=== PATIENT | male | born 1950 | race Caucasian/White ===

== ENCOUNTER 2022-10-17 09:46 | Day surgery (SDC) | payer MEDICARE, OTHER ==
[~2022-10-17] VITALS: Ht 193 cm; Wt 118.0 kg
[~2022-10-17 09:46] MED LIST: FLOMAX0.4 MG PO; LEVOFLOXACIN500 MG PO; LIPITOR20 MG PO; METOPROLOL SUCC50 MG PO; NORVASC10 MG PO; PERCOCET 7.5-31 EACH PO; PROSCAR5 MG PO; TRIAMTERENE-HC1 EAC1 PO
[2022-10-17] MEDS ORDERED: VITAMIN B COMP1 EACH PO (10:11)
[2022-10-17] MEDS ORDERED: VITAMIN C100 MG PO (10:11)
[2022-10-17 10:33] VITALS: BP 131/78
--- NOTE | 2022-10-17 12:47 | NUR ---
10/17/22 [facility] Alisa Pinzon 1241-PATIENT ARRIVED TO PACU ON 2L NC RR EVEN. PATIENT AWAKE REMAINS VERY DROWSY DENIES PAIN OR NAUSEA. ABDOMEN ROUND AND SOFT ENCOURAGED TO PASS GAS. PATIENT DOZES BACK TO SLEEP
[2022-10-17 13:48] VITALS: BP 127/71
--- NOTE | 2022-10-20 15:24 | OR ---
[facility] [address] [place], [place] [address] Signed DATE OF OPERATION: 10/17/2022 SURGEON: Ted Haines MD PREOPERATIVE DIAGNOSES: 1. Left colon mass consistent with malignancy; symptomatic. 2. History of complex cecal polyp. POSTOPERATIVE DIAGNOSES: 1. 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 2. Linear polyp of cecum, uncertain underlying histology. 3. Polyps x3 (60 cm and mid and low rectum). PROCEDURES: 1. Total colonoscopy to cecum with biopsy of left colon mass. 2. Hot snare polypectomy x3 (60 cm, rectum and additional rectal lesion). 3. Hot snare polypectomy with morcellation excision cecal polyp. 4. Endoscopic tattoo application left colon lesion and cecal lesion. ANESTHESIA: Intravenous sedation, fentanyl 200 mcg and Versed 11 mg. INDICATION: This 72-year-old white man is known to me from the past having undergone colonoscopy in 2012 showing an adenomatous polyp of the cecum. Followup colonoscopy confirmed complete resection. He was recommended to have additional followup, however, has been indisposed over the past 10 years and has not followed through with colonoscopy. [place], [place].. The patient has had episodes of left-sided abdominal pain including an episode of nausea and vomiting. His physician, Dr. Martino thought there may be findings of an abdominal wall hernia. I evaluated him on September 25 where he was found to have no clinical evidence of hernia, but did have tenderness and fullness of the left abdomen. A CT scan was performed soon thereafter on September 26 confirming an 11 cm mass in the area of the sigmoid and left colon. He is admitted to undergo colonoscopy at this time. He understands the risk of bleeding, infection, and perforation and wished to proceed. FINDINGS: The prep was good. Complete colonoscopy was undertaken of the cecum. A circumferential tumor was noted in the left colon between 60 and 70 cm from the anal verge. It was clearly malignant. Three additional polyps noted including a linear somewhat firm polyp Electronically Signed By: TED HAINES MD 10/20/22 1524 PATIENT NAME: AUSTIN ANDERSON OPERATIVE REPORT DATE OF : 46 REPORT #: [id number] PHYSICIAN: TED HAINES MD PCP: REPORT IS CONFIDENTIAL AND NOT TO BE RELEASED WITHOUT AUTHORIZATION [facility] [address] [place], [place] [address] Signed of the cecum, which was excised with a combination of techniques and possibly not completely as well as marked with tattoo dye. Additionally, he had extensive diverticulosis of the sigmoid and elsewhere. There were three additional polyps, one at 60 cm (inferior to the neoplasm itself) and two rectal polyps, both excised with hot snare polypectomy technique. DESCRIPTION OF PROCEDURE: The patient was brought to the endoscopy suite and placed in the lateral decubitus position, given intravenous sedation to the point of slurred speech and nystagmus. Full cardiopulmonary monitoring was maintained. Digital rectal examination was normal. An Olympus video colonoscope was passed in the rectum and manipulated into sigmoid where numerous diverticula were seen. At approximately the mid left colon, a neoplasm was noted, it was quite clearly malignant. It was circumferential in its position. With various manipulations, the scope was passed beyond this to the more proximal colon which was free. Numerous diverticula were still seen on the left side. The scope was ultimately advanced to the cecum. In the region of the cecum was a linear, somewhat firm polyp possibly and probably adenomatous. This was biopsied multiple times and excision attempted undertaken with hot snare polypectomy technique. Injection of Endomark tattoo dye was undertaken as well. It is unclear if this represent a malignancy, though probably not. The scope was then withdrawn and examination undertaken more fully. The offending lesion was once again encountered at approximately 70 cm from the anal verge. It was biopsied multiple times. Endomark tattoo dye was also injected for future reference. The scope was withdrawn further and approximately 60 cm from the anal verge was a sessile polyp, this was excised with hot snare polypectomy technique and passed for pathology. Further withdrawal showed diverticula of the sigmoid and two relatively larger polyps of the mid rectum and the low rectum. The mid rectal polyp was about 2 cm in size, it was excised with hot snare polypectomy technique and the lowest rectal polyp only a cm or two above the dentate line about 1.5 cm in size and excised with hot snare technique. Hemostasis was assured. The scope was removed and the patient was taken to the recovery room in good condition. CONCLUDING DIAGNOSIS: Multiple polyps as well as colonic neoplasm of the proximal sigmoid or left mid colon. Clearly he will require resection of the neoplastic process. The extent of resection may be determined based on the pathology of the cecal lesion. I am hopeful and optimistic that the cecal lesion is not malignant, but if it is, consideration would have to be made for subtotal colectomy. PLAN: We will await final pathology particularly regarding the cecal lesion. Clearly, he will require resection of the left colon, possibly more as described. Electronically Signed By: TED HAINES MD 10/20/22 1524 PATIENT NAME: AUSTIN ANDERSON OPERATIVE REPORT DATE OF : 46 REPORT #: [id number] PHYSICIAN: TED HAINES MD PCP: REPORT IS CONFIDENTIAL AND NOT TO BE RELEASED WITHOUT AUTHORIZATION [address] [place], [place] [address] Signed MD REBECCA Lombardo/AVA /[id number] cc: Lizet Martino MD Copies: LIZET MARTINO MD ~ Electronically Signed By: TED HAINES MD 10/20/22 1524 PATIENT NAME: AUSTIN ANDERSON OPERATIVE REPORT DATE OF : 46 REPORT #: [id number] PHYSICIAN: TED HAINES MD PCP: REPORT IS CONFIDENTIAL AND NOT TO BE RELEASED WITHOUT AUTHORIZATION
--- NOTE | 2022-10-20 17:00 | PATH ---
[facility] [address] [place], [place] [address] Signed SPECIMEN(S): A CECUM COLON POLYP BIOPSY SPECIMEN(S): B SIGMOID COLON BIOPSY SPECIMEN(S): C POLYP AT 60 CM SPECIMEN(S): D RECTAL POLYP #1 SPECIMEN(S): E RECTAL POLYP #2 SPECIMEN SOURCE: A. CECUM COLON POLYP BIOPSY B. SIGMOID COLON BIOPSY C. POLYP AT 60 CM D. RECTAL POLYP #1 E. RECTAL POLYP #2 CLINICAL HISTORY: History of adenomatous polyp, left sided abdominal pain. Postop: Diverticulosis, left sided colon mass, rectal polyps, cecal polyp. FINAL PATHOLOGIC DIAGNOSIS: A. Cecum colon polyp, biopsy: - Tubular adenoma (multiple fragments). B. Sigmoid colon, biopsy: - Tubulovillous adenoma with high grade dysplasia, highly suspicious for intramucosal carcinoma. C. Polyp at 60 cm: - Tubular adenoma. D. Rectal polyp #1: - Tubular adenoma (two fragments). E. Rectal polyp #2: - Tubular adenoma. COMMENT: As part of [facility] Quality Improvement Program, this case was reviewed by another member of our pathology staff. Diagnostic notification to the office of Dr. Miller is initiated by Dr. Wasserman and will be recorded separately. JVR:LEN:anahi:[id number] MICROSCOPIC EXAMINATION: Histologic sections of all submitted blocks are examined by light microscopy. These findings, together with the gross examination, support the pathologic diagnosis. PATIENT NAME: AUSTIN ANDERSON ELO PATHOLOGY DATE OF : 46 REPORT #: [id number] PHYSICIAN: JASE SÁNCHEZ PCP: REPORT IS CONFIDENTIAL AND NOT TO BE RELEASED WITHOUT AUTHORIZATION [facility] [address] [place], [place] [address] Signed GROSS DESCRIPTION: A. The specimen, labeled and designated "Job, cecum colon polyp biopsy," is received in formalin and consists of eight brown soft tissue fragments, ranging from 0.2-0.4 cm. Entirely submitted in (A1). B. The specimen, labeled and designated "Job, sigmoid colon mass biopsy," is received in formalin and consists of multiple brown soft tissue fragments, 0.1-0.3 cm. Entirely submitted in (B1). C. The specimen, labeled and designated "Job, colon polyp at 60 cm," is received in formalin and consists of a polyp of brown, nodular soft tissue (0.8 x 0.6 x 0.6 cm). The resection margin is inked blue, and the tissue is bisected to reveal a brown, soft cut surface. The specimen is submitted entirely in cassette (C1). D. The specimen, labeled and designated "Job, rectal polyp #1," is received in formalin and consists of two fragments of pink-brown soft tissue (0.3-0.4 cm in greatest dimension) and a polyp of brown-brown, nodular soft tissue (1.7 x 1.5 x 1.3 cm). The resection margin is inked blue, and the tissue is serially sectioned to reveal a brown-brown, soft cut surface. The specimen is submitted entirely in cassettes (D1-D2). E. The specimen, labeled and designated "Job, rectal polyp #2," is received in formalin and consists of one polyp of brown-rbown soft tissue (0.9 x 0.8 x 0.7 cm). The resection margin is inked blue, and the tissue is bisected to reveal a pink-brown, soft cut surface. The specimen is submitted entirely in cassette (E1). VB (under the direct supervision of a pathologist) The Gross Description was prepared using a voice recognition system. The report was reviewed for accuracy; however, sound-alike word errors, addition and/or deletions may occur. If there is any question about this report, please contact Client Services. PERFORMING LABORATORY: The technical component was performed by [facility], [address] [place] [id number] (CLIA# [id number]). Professional interpretation was performed by [facility], [address] [place] [id number] (CLIA#: [id number]). Diagnostician: Basim Wasserman MD Pathologist Electronically Signed 10/20/2022 PATIENT NAME: AUSTIN ANDERSON PATHOLOGY DATE OF : 46 REPORT #: [id number] PHYSICIAN: [facility] PCP: REPORT IS CONFIDENTIAL AND NOT TO BE RELEASED WITHOUT AUTHORIZATION [facility] [address] [place], [place] [address] Signed Copies: ~ PATIENT NAME: AUSTIN ANDERSON PATHOLOGY DATE OF : 46 REPORT #: [id number] PHYSICIAN: JASE PATHOLOGY PCP: REPORT IS CONFIDENTIAL AND NOT TO BE RELEASED WITHOUT AUTHORIZATION
== END 2022-10-17 14:00 | disposition home or self-care (01) ==
LOC: OPS 09:46 → DS 09:46 → OPS 11:00 → DS 12-14 14:00
PROVIDERS: ATTEND Surgery
PROC: 0DBE8ZZ Excision of Large Intestine, Via Natural or Artificial Opening Endoscopic (ICD-10-PCS; 2022-10-17)
PROC: 0DBN8ZZ Excision of Sigmoid Colon, Via Natural or Artificial Opening Endoscopic (ICD-10-PCS; 2022-10-17)
PROC: 0DBP8ZZ Excision of Rectum, Via Natural or Artificial Opening Endoscopic (ICD-10-PCS; 2022-10-17)
PROC: 0DBH8ZZ Excision of Cecum, Via Natural or Artificial Opening Endoscopic (ICD-10-PCS; principal; 2022-10-17 11:00)
DX: D12.0 Benign neoplasm of cecum (principal); D12.5 Benign neoplasm of sigmoid colon; D12.8 Benign neoplasm of rectum; K57.30 Diverticulosis of large intestine without perforation or abscess without bleeding; R10.9 Unspecified abdominal pain; R11.2 Nausea with vomiting, unspecified; Z86.010 Personal history of colon polyps; Z98.890 Other specified postprocedural states
CPT/HCPCS: 36415; 80053; 82378; 85025; 99153; G0500; J0690; J2250; J3010; J7121

== ENCOUNTER 2022-11-09 14:17 | Inpatient (IN) | payer MEDICARE, OTHER ==
[~2022-11-09] VITALS: Ht 193 cm; Wt 118.2 kg
[~2022-11-09 14:17] MED LIST changes: +VITAMIN B COMP1 EACH PO; +VITAMIN C100 MG PO
[2022-11-14] VITALS (7 sets, daily range): BP systolic 111–146; BP diastolic 60–90
[2022-11-14] MEDS ORDERED: FOLIC ACID0.4 MG PO (08:04)
[2022-11-14] MEDS ORDERED: VITAMIN B-1100 M1 PO (08:04)
--- NOTE | 2022-11-14 13:28 | NUR ---
PT JUST ARRIVING AND CONNECTED BEFORE RN COMES TO PREP PT. HIS DAUGHTER EMETERIO WILL REMAIN. AILYN GERMAIN RN IN TO BEGIN. WILL FOLLOW
--- NOTE | 2022-11-14 15:18 | NUR ---
11/14/22 1518 Patience Davis SN 1502 PATIENT ARRIVES TO PACU AWAKE BUT DROWSY. PATIENT CONFUSED REORIENTED TO PACU. NYSTAGMUS NOTED. RESP EVEN AND UNLABORED. O2 SAT > 90% ON ROOM AIR. 1510 PATIENT ALERT AND ORIENTED. NO LONGER CONFUSED. DR HAINES AT BEDSIDE. PATIENT ASKING AND ANSWERING QUESTIONS APPROPRIATLEY. 1515 PATIENT CONTINUES TO BE ALERT AND ORIENTED. DENIES PAIN AND NAUSEA. TAKING SIPS OF WATER. RESP EVEN AND UNLABORED. O2 >90% ON ROOM AIR.
--- NOTE | 2022-11-14 16:01 | NUR ---
PATIENT BROUGHT TO MED SURG FROM PACU. PATIENT CURRENLTY ON ROOM AIR, PAIN 8/10 IN THE LOWER BACK. NO ABDOMINAL PAIN. PATIENT HAS LR RUNNING. PATIENT HAS SCD'S ON. PATIENT HAS LIZET DRAIN ON THE LEFT SIDE. PATIENT HAS DAUGHTER AT BEDSIDE.
--- NOTE | 2022-11-14 18:47 | NUR ---
CONTINUES TO COMPLAIN OF PAIN 03/18. STATES PAIN IS IN BACK. DRESSINGS TO ABDOMEN REMAIN UNCHANGED. DR. HAINES IN TO SEE PATIENT.
--- NOTE | 2022-11-14 19:34 | EKG ---
[facility] [address] [facility] [place] [address] Signed Sinus rhythm with fusion complexes and premature atrial complexes with aberrant conduction with ventricular escape complexes Left axis deviation Abnormal ECG No previous ECGs available Confirmed by JACQUE ANNA MD ([id number]) on 11/14/2022 7:34:08 PM Electronically Signed By: JACQUE ANNA MD 11/14/221933 PATIENT NAME: AUSTIN ANDERSON ELO Electrocardiogram DATE OF : 46 PHYSICIAN: JACQUE ANNA MD REPORT #: [id number] REPORT IS CONFIDENTIAL AND NOT TO BE RELEASED WITHOUT AUTHORIZATION
--- NOTE | 2022-11-14 19:49 | NUR ---
pt SITTING UP IN CHAIR. EYES CLOSED, AWAKENS TO VOICE. VSS. pt STATES HES IN PAIN. PRIMARY RN IN ROOM. DAUGHTER STATES pt HAS BEEN RESTLESS, NO SHIFTING IN CHAIR AT THIS TIME.
--- NOTE | 2022-11-14 20:00 | NUR ---
REPORT RECEIVED FROM DAY SHIFT RN. PT SITTING IN RECLINER C/O BACK PAIN. PRN FOR PAIN ADMIN PER ORDER. WARM COMPRESS FOR LOWER BACK PROVIDED. PT DAUGHTER REPORTS PT RESTLESS NEEDING TO STAND FREQUENTLY TO RELIEVE BACK PAIN. PT ALERT AND ORIENTED. DOZING ON AND OFF AFTER PRN ADMIN. PT REMAINS IN RECLINER. DAUGHTER TO LEAVE FOR DINNER. CHAIR ALARM IN PLACE. CALL LIGHT IN REACH.
--- NOTE | 2022-11-14 21:30 | NUR ---
PT BACK TO BED WITH ASSIST. REPOSITIONED IN BED WITH PILLOWS FOR COMFORT. K-PAD TO LOWER BACK. PT REPORTS BACK PAIN 02/15. PRN FOR PAIN ADMIN PER EMAR. EVENING ASSESSMENT COMPLETE. SCHEDULED MEDS ADMIN PER EMAR. PT REPORTS SLIGHT NAUSEA, REFUSED PRN FOR N/V. KYARA KERRI PROVIDED PER REQUEST. MIDLINE ABD DRESSING INTACT WITH SCANT AMOUNT SEROSANG DRAINAGE AT DISTAL END OF DRESSING. BOWEL TONES ACTIVE. ABD SOFT. PT DENIES FLATUS. LIZET TO LLQ WITH 20 ML SEROSANG DRAINAGE. SCD'S AND CPOX IN PLACE. PT DAUGHTER AT BEDSIDE. PT/FAMILY DENY QUESTIONS OR CONCERNS. CALL LIGHT IN REACH. BED ALARM FOR SAFETY.
--- NOTE | 2022-11-14 23:33 | NUR ---
PT RESTING IN BED WITH EYES CLOSED. RESPIRATIONS EVEN. CALL LIGHT IN REACH. BED ALARM FOR SAFETY.
[2022-11-15 00:54] VITALS: BP 122/68
--- NOTE | 2022-11-15 01:16 | NUR ---
CALL LIGHT ANSWERED. PT REPORTS 8/10 BACK PAIN. PRN FOR PAIN ADMIN PER EMAR. PT UP TO RECLINER WITH 2PA PER REQUEST. PT DIAPHORETIC. LINENS CHANGED. VS AND I&O OBTAINED. MORRISON PATENT WITH QS CONCENTRATED URINE. LIZET WITH SMALL AMOUNT SEROSANG DRAINAGE. PT DENIES NAUSEA. NO FURTHER NEEDS. CHAIR ALARM IN PLACE.
--- NOTE | 2022-11-15 01:52 | NUR ---
PT CONTINUES TO REPORTS BACK PAIN 01/15. ADDITIONAL PRN FOR PAIN ADMIN PER EMAR. PT REMAINS IN RECLINER WITH LEGS ELEVATED. NO FURTHER NEEDS. CHAIR ALARM IN PLACE. CALL LIGHT IN REACH.
--- NOTE | 2022-11-15 03:53 | NUR ---
PT RESTING IN RECLINER WITH EYES CLOSED. RESPIRATIONS EVEN. SpO2 94% ON RA. CALL LIGHT IN REACH.
[2022-11-15 04:22] VITALS: BP 120/53
--- NOTE | 2022-11-15 05:10 | NUR ---
CALL LIGHT ANSWERED. PT REQUESTING EXTRA BLANKET. WARM BLANKET PROVIDED. PT IN RECLINER WITH FEET ELEVATED. REPORTS ABD/BACK PAIN 12/16. PRN FOR PAIN ADMIN PER EMAR. PT DENIES NAUSEA. VS AND I&O COMPLETE. LIZET WITH 20 ML SEROSANG DRAINAGE. MORRISON PATENT WITH QS YELLOW URINE. NO FURTHER NEEDS. CALL LIGHT IN REACH.
--- NOTE | 2022-11-15 06:20 | NUR ---
IV ABX ADMIN PER ORDER. PT REPORTS BACK/ABD PAIN "HANGING IN THERE" AT 5/10. DENIES NAUSEA. IS EDUCATION PROVIDED. PT DEMONSTRATED PROPER USE. CHAIR ALARM IN PLACE. CALL LIGHT IN REACH.
--- NOTE | 2022-11-15 08:09 | NUR ---
HAND OFF RECEIVED FROM RONNIE SANTILLAN, AT 0705 HOURS. PT UP IN CHAIR, FAMILY MEMBER AT BEDSIDE. CURRENTLY, PT REQUESTS PAIN MEDS AND IS ADVISED WE ARE ABLE TO GIVE TYLENOL AT THIS TIME. IV TYLENOL STARTED, PT REQUESTS TO USE TOILET. 1 PERSON ASSIST WITH FWW UP TO TOILET, NO BM, PASSING GAS. PT BACK TO CHAIR, CLEAR LIQUID BREAKFAST ARRIVED. FEET ELEVATED, K-PAD TO LOWER BACK. ASSESSMENT DONE. PT REQUESTS GINGERALE. NO FURTHER NEEDS AT THIS TIME.
[2022-11-15 08:36] VITALS: BP 140/78
--- NOTE | 2022-11-15 08:53 | NUR ---
IN FOR ADMINISTRATION OF MORNING MEDS, TYLENOL ADMINISTRATION COMPLETE, LR RUNNING AT 85MLS/HR. FAMILY IN ROOM. PT REFUSED METOPROLOL AND FINASTERIDE, STATING THAT HE TAKES THE FINASTERIDE CLOSER TO THE AFTERNOON AND METOPROLOL ONLY AT NIGHT. ANESTHESIA AT THE DOOR DISCUSSING PT SURGERY WITH PT AND FAMILY, PT REPORTING DISCOMFORT AND PAIN IN LOW BACK AT THE BELT LINE ONLY WHEN HE IS SEATED OR LAYING IN BED AND STATES THAT IT IMPROVES ALMOST TO THE POINT OF DISAPPEARING WHEN HE STANDS. DESCRIBES IT A CONSTANT ACHING, NOT SPASMS AND REQUESTS TO TRY A XYLOCAINE PATCH FOR RELIEF. PT DID TAKE THE HEPARIN IN THE RLQ, THE NORVASC AND THE THIAMINE, BUT REFUSED THE FINASTERIDE AND METOPROLOL AT THIS TIME. CALL LIGHT IN REACH, NO FURTHER NEEDS AT THIS TIME.
--- NOTE | 2022-11-15 11:05 | NUR ---
PT UP IN CHAIR, AMBULATES TO TOILET WITH FWW WITH STANDBY ASSIST AND LINE AND TUBE MANAGEMENT ONLY. REPORTS INCREASING PAIN IN LOW BACK AND ABDOMEN, STATES TYLENOL HASN'T HELPED, AGREES TO TRY TORADOL. K-PAD ON LOW BACK. PT STATES PAIN IN LOW BACK DECREASES WHEN STANDING AND MOVING. SEVERAL FAMILY MEMBERS IN ROOM. WILL ADMINISTER TORADOL PER EMAR. CALL LIGHT IN REACH.
--- NOTE | 2022-11-15 11:09 | NUR ---
PT AWAKE, ALERT, ORIENTED X4, DAUGHTER AT BEDSIDE. ASSESSMENT PERFORMED, PT REPORTS PAIN IN HIS ABDOMEN WITH GENTLE PALPATION, IS PASSING GAS, BUT NO BM, WAS TOLD THIS IS PROBABLY NOT EXPECTED YET HE HAS NOT HAD MUCH SOLID FOOD OVER THE LAST COUPLE OF DAYS AND IS ON A CLEAR LIQUID DIET, CURRENTLY. ENCOURAGED PT TO USE HIS CALL LIGHT IF HE HAS ANY NEEDS OR QUESTIONS, CALL LIGHT IN REACH. PT UP TO TOILET WITH 1-PERSON STANDBY ASSIST USING FWW, MORRISON DRAINING BETO COLORED, CLEAR URINE.
--- NOTE | 2022-11-15 11:26 | NUR ---
PT UP TO BATHROOM SEVERAL TIMES SO FAR THIS SHIFT, PASSING GAS, ONLY. ADVISED PT THAT THIS IS NORMAL. PT PLANS TO AMBULATE HALLWAYS AFTER TORADOL "KICKS IN". CALL LIGHT IN REACH.
--- NOTE | 2022-11-15 13:01 | NUR ---
Lindsay DALE RN ASSISTED PT TO AMBULATE THE HALLWAY WITH WALKER, THEN BACK TO ROOM. PT TOLERATED WELL. LIDOCAINE PATCH WAS PLACED ON PT'S MID LOWER BACK AT ABOUT 1210 HOURS FOR PAIN 7 OUT OF 10 IN MID LOWER BACK.
--- NOTE | 2022-11-15 13:04 | NUR ---
PT LAYING SUPINE IN BED, TALKING ON THE PHONE TO HIS SISTER (ACCORDING TO FAMILY MEMBER). CALL LIGHT WITHIN REACH, ROOM DOOR CLOSED FOR PRIVACY. FAMILY DENIES NEEDS AT THIS TIME.
--- NOTE | 2022-11-15 13:33 | NUR ---
SPOKE TO PATIENT ABOUT THE PLAN OF CARE. PATIENT PLANS TO STAY WITH HIS DAUGHTER AND SON FOR POST-OP SURGERY RECOVERY. DEMOGRAPHIS ARE CORRECT IN THE MEDICAL RECORD.PATIENT OWNS A COUPLE OF HOUSES AND LAND. PATIENT HAS NO FOOD INSECURITIES.PATIENT HAS A WALKER AND CAN USE IT IF NEEDED. PATIENT STILL DRIVES HIS CAR. PATIENT USES ETOH APPROX. 2-3 GLASSES A DAY. PATIENT DOES NOT WANT TO GO TO SNF. 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 PATIENT IS ABLE TO DO HIS OWN ADLS.PATIENT PLANS TO GO HOME TO HIS OWN HOUSE IN THE FUTURE.
--- NOTE | 2022-11-15 14:15 | NUR ---
PT IN ROOM SITTING IN CHAIR, VISITING WITH FAMILY. PT C/O PAIN IN BACK 6-7. INFORMED RN KESHAV, SHE WILL FOLLOW UP. GAVE PT BELGICA ESCOBAR, HAD PRAYER AT HIS REQUEST. GAVE ENCOURAGEMENT AND WILL FOLLOW
[2022-11-15 14:30] VITALS: BP 126/66
--- NOTE | 2022-11-15 15:00 | NUR ---
PT IN BED, EYES CLOSED, LIGHTS OFF, FAMILY IN ROOM. DENIES NEEDS AT THIS TIME. REQUESTED THEY CALL FOR NURSE IF PT WAKES AND NEEDS ANYTHING.
--- NOTE | 2022-11-15 16:35 | NUR ---
PT RESTING WITH EYES CLOSED, IN BED. MORRISON BAG EMPTIED OF 1600ML CLEAR YELLOW URINE CONTAINING A FEW SMALL BLOOD CLOTS (PENCIL LEAD SIZED). IV PUMP CLEARED FOR I&0. DOCUMENTED THE MORRISON AND IV PUMP FLUIDS. CALL LIGHT AND BEDSIDE TABLE IN REACH. LIGHTS OFF.
--- NOTE | 2022-11-15 17:32 | NUR ---
DR. HAINES IN ROOM. PT AWAKE, LAYING IN BED, FAMILY IN ROOM. DR. HAINES ADVISED PT THAT HE CAN HAVE MASHED POTATOES TONIGHT, REQUESTED, IF HE THINKS HE CAN TOLERATE THEM, BUT TO TAKE IT SLOW, AND HE WILL CHANGE HIM TO A SOFT DIET TOMORROW MORNING. THE MORRISON IS TO COME OUT TOMORROW MORNING WELL. THE PT VERBALIZED UNDERSTANDING. DIETARY CALLED, MASHED POTATOES AND GRAVY WAS ORDERED AND WILL BE BROUGHT UP TO THE PATIENT. CURRENTLY HE IS EATING FULL LIQUID AND TOLERATING THIS WELL. HE IS ABLE TO AMBULATE WITH FWW WITH NO ISSUES AND SBA. REPORTS HIS PAIN, WHILE LYING IN BED, IS ZERO. PT WOULD LIKE TO AMBULATE THE [place].
--- NOTE | 2022-11-15 18:22 | NUR ---
PT HAS BEEN UP TO THE BATHROOM FEELING LIKE HE HAS TO HAVE A BM SEVERAL TIMES THROUGHOUT THE SHIFT BUT HAS MAINLY PASSED ONLY FLATUS. HE DID HAVE A SMALL BM IN THE AFTERNOON, THEN AGAIN THIS EVENING. HE HAS AMBULATED A SHORT DISTANCE IN THE HALLWAY OUTSIDE HIS ROOM X2 WITH A FWW AND SBA FOR LINE AND TUBE MANAGEMENT. WHEN HE STANDS, HE HAS HAD A BIT OF LIGHTHEADEDNESS THAT CLEARS UP, AND REPORTS PAIN IN HIS ABDOMEN THAT INCREASES TO ABOUT A 7 OUT OF 10. HE HAS COMPLAINED OF PAIN IN HIS LOW BACK THROUGHOUT THE DAY THAT IS RESOLVED ALMOST COMPLETELY WHEN HE STANDS AND WALKS AROUND AND WORSENS WHEN HE SITS OR LAYS IN BED. HE WAS GIVEN A LIDOCAINE PATCH, IV TYLENOL, IV TORADOL, AND THIS EVENING PO MOTRIN. HE NAPPED FOR ABOUT 4 HOURS THIS AFTERNOON AND STATED THAT THE BACK PAIN IS ALMOST COMPLETELY GONE, ATTRIBUTING IT TO THE POSITIONING OF THE BED THAT HE FOUND THAT WAS MOST COMFORTABLE (SUPINE WITH KNEES ELEVATED SLIGHTLY). DR. HAINES CHANGED HIM TO A SOFT DIET AND ALLOWED HIM TO TRY EATING MASHED POTATOES TONIGHT AND ORDERED THE MORRISON TO BE DC'D IN THE MORNING. THE PT IS ENCOURAGED TO INCREASE AMBULATION TOLERATED, MUCH POSSIBLE. HIS IV PAIN MEDS WILL BE REMOVED FROM THE EMAR WHEN DR. HAINES IS CERTAIN HE CAN TOLERATE THE PO PAIN MEDS.
[2022-11-15 18:33] VITALS: BP 138/74
--- NOTE | 2022-11-15 19:05 | NUR ---
REPORT RECEIVED FROM RONNIE JOEL. PT LAYING IN BED AND RESPONDS WHEN ADDRESSED. PT DENIES ANY NEEDS AT THIS TIME. CALL LIGHT IN REACH. FAMILY IN ROOM. NO NEEDS FROM THIS RN AT THIS TIME.
[2022-11-15 20:15] VITALS: BP 123/71
--- NOTE | 2022-11-15 20:23 | NUR ---
IN TO ADMINISTER MEDICATIONS, SEE MAR. PT REPORTING PAIN 4/10 IN ABD. PRN TYLENOL ADMINISTERED, SEE MAR. PT TAKES PO MEDICATION WITH NO ISSUES. VITALS AND I&Os COMPLETE. ASSESSMENT COMPLETE. LUNG SOUNDS CLEAR. BOWEL TONES ACTIVE. PT REPORTING PAIN TO ABD AND STATES "IT IS A DULL PAIN ALL OVER." DRESSING TO ABD D/I WITH SCANT AMOUNT OF DRAINAGE TO BOTTOME OF DRESSING. DRESSING TO LLQ LIZET DRAIN C/D/I. LIZET DRAIN NOT EMPTIED AT THIS TIME. PT DENIES ANY NEEDS AT THIS TIME. CALL LIGHT IN REACH.
[2022-11-16] VITALS (7 sets, daily range): BP systolic 127–149; BP diastolic 70–88
--- NOTE | 2022-11-16 00:37 | NUR ---
IN TO ROUND ON PT. PT OPENS EYES WHEN DOOR OPENS AND RESPONDS WHEN ADDRESSED. PT REQUESTING WARM BLANKET AND WATER. WARM BLANKET AND WATER PROVIDED. PT REMOVES PATCH FROM BACK AND HANDS IT TO THIS RN. PT DENIES ANY OTHER NEEDS AT THIS TIME. CALL LIGHT IN REACH.
--- NOTE | 2022-11-16 03:44 | NUR ---
IN TO ROUND ON PT. PT LAYING IN BED SEMI-FOWLERS. MORRISON BAG EMPTIED. PT AWAKENS AND RESPONDS WHEN ADDRESSED. ASSESSMENT COMPLETE. LUNG SOUNDS CLEAR. BOWEL TONES ACTIVE. MIDLINE ABD DRESSING D/I WITH SCANT AMOUNT OF DRAINAGE NOTED TO LOWER PORTION OF DRESSING. DRESSING TO LLQ LIZET DRAIN C/D/I. ASKED PT IF PT HAS ANY PAIN PT STATES "I DO HAVE SOME PAIN, BUT SOME LADY ALREADY GAVE ME SOMETHING FOR PAIN." PT DENIES ANY PRN PAIN MEDICATION WHEN OFFERED. PT STATES "THAT THING (POINTING TO IV PUMP) MAKES IT HARD TO SLEEP, IT IS NOISY." PT REPORTS HE RECEIVED EAR PLUGS FROM THE NURSE WHO ADMINISTERED PRN PAIN MEDICATION EARLIER AND STATES "I'LL GIVE THOSE A TRY." PT DENIES ANY OTHER NEEDS AT THIS TIME. CALL LIGHT IN REACH.
--- NOTE | 2022-11-16 06:18 | NUR ---
IN TO ROUND ON PT. PT REPORTS TOILETING NEEDS. PT AMBULATES WITH FWW FROM BED TO RESTROOM AND THEN TO CHAIR WITH STEADY GAIT. PT REPORTING PAIN 09/15. PT DENIES PRN PAIN MEDICATION WHEN OFFERED. LESTER RHODES IN TO ASSIST. VITALS AND I&Os COMPLETE. BLANKET PROVIDED. NEW GOWN PROVIDED PT STATES "MY GOWN GOT INTO THE TOILET." PT DENIES ANY OTHER NEEDS AT THIS TIME. CALL LIGHT IN REACH.
--- NOTE | 2022-11-16 06:32 | NUR ---
IN TO ROUND ON PT AND REMOVE MORRISON CATHETER. PT REQUESTING TO WAIT ANOTHER 15 MINUTES OR SO PT STATES "I AM STILL A LITTLE GROGGY AND I WANT TO WAKE UP A LITTLE MORE BEFORE." PT REQUESTING COFFEE, COFFEE PROVIDED. PT DENIES ANY OTHER NEEDS AT THIS TIME. CALL LIGHT IN REACH.
--- NOTE | 2022-11-16 06:50 | NUR ---
IN TO ANSWER CALL LIGHT. PT REPORTS HE IS READY TO HAVE MORRISON CATHETER REMOVED. MORRISON CATHETER REMOVED. PT TOLERATED WELL. PT STATES "NO I THINK I NEED TO TRY AND GO TO THE RESTROOM." PT AMBULATES WITH FWW FROM CHAIR TO RESTROOM AND BACK TO CHAIR. NEW BAG OF FLUIDS STARTED, SEE MAR. PT PROVIDED PRUNE JUICE. PT DENIES ANY OTHER NEEDS AT THIS TIME. CALL LIGHT IN REACH.
--- NOTE | 2022-11-16 07:32 | NUR ---
REPORT FROM RONNIE MILLS. PATIENT ASSISTED TO RECLINER FROM BED. STATES HE HAS PAIN IN RIGHT CHEST 5/[address] ANNA NOTIFIED.
--- NOTE | 2022-11-16 08:37 | NUR ---
MED REC COMPLETE
--- NOTE | 2022-11-16 10:11 | NUR ---
PER AM MEETING PATIENT PROGRESSING WELL. NO CHANGE IN DISCHARGE PLAN AT THIS TIME.
--- NOTE | 2022-11-16 10:21 | NUR ---
STATES HE IS FEELING BETTER. WAS FEELING A LITTLE "QUEASY" AFTER BREAKFAST BUT RESOLVED WITH KYARA KERRI AND STOMACH REST. NO MEDICATION NEEDED. STATES HE TAKES PROSCAR AT NIGHT, PHARMACY NOTIFIED. ALSO STATES HE ONLY TAKES METOPROLOL AT NIGHT AND NOT IN THE AM. LIANE, PHARMACIST, STATES HE HAS SENT DR. HAINES A MESSAGE REGARDING MEDICATION.
--- NOTE | 2022-11-16 12:25 | NUR ---
Patient in bed, talking, slight pain, however, lidocane patch helped. Patient has son and daughter in-law in room with him. Patient is eating, has call light and is safe.
--- NOTE | 2022-11-16 13:49 | NUR ---
IV CONVERTED TO SL. LIZET DC'D BY DR. HAINES. PATIENT ENCOURAGED TO SHOWER THIS AFTERNOON AND WALK. WOULD LIKE TO REST FOR A BIT. INSTRUCTED TO CALL WHEN HE IS READY. CALL LIGHT IN REACH.
--- NOTE | 2022-11-16 15:12 | NUR ---
PT NOT FEELING WELL TODAY, RM DARKENED AND LAYING IN BED. GAVE BLESSING
--- NOTE | 2022-11-16 15:21 | NUR ---
SITTING UP IN RECLINER. EYES CLOSED. RESPIRATIONS EVEN AND UNLABORED. ALLOWED TO REST. CALL LIGHT IN REACH.
--- NOTE | 2022-11-16 19:10 | NUR ---
REPORT RECEIVED FROM RONNIE PARR. PT LAYING IN BED SEMI-FOWLERS. PT RESPONDS WHEN ADDRESSED. PT DENIES ANY NEEDS AT THIS TIME. CALL LIGHT IN REACH. FAMILY IN ROOM.
--- NOTE | 2022-11-16 20:51 | NUR ---
IN TO ADMINISTER MEDICATIONS, SEE MAR. PT TAKES PO MEDICATIONS WITH NO ISSUES. VITALS AND I&Os COMPLETE. ASSESSMENT COMPLETE. LUNG SOUNDS CLEAR. BOWEL TONES ACTIVE. ABD TENDER WITH PALPATION. MIDLINE INCISION WITH STERI-STRIPS D/I WITH SCANT AMOUNT OF DRAINAGE NOTED. LLQ BANDAID C/D/I. PT DENIES PAIN AT THIS TIME. AND DENIES PRN PAIN MEDICATION WHEN OFFERED. PT REFUSES FINASTERIDE AT THIS TIME AND STATES "I THINK MY PROBLEM WAS FIXED WHEN THIS SURGERY WAS DONE." PT DENIES ANY OTHER NEEDS AT THIS TIME. CALL LIGHT IN REACH.
--- NOTE | 2022-11-16 22:22 | NUR ---
IN TO ROUND ON PT. PT LAYING IN BED SEMI-FOWLERS WITH EYES CLOSED. RR EVEN AND UNLABORED. PT AWAKENS WHEN THIS RN ENTERS ROOM. PT REQUESTING URINAL TO BE EMPTIED. URINAL EMPTIED. PT REQUESTING TO HAVE SCDs OFF. SCDs OFF PER PT REQUEST. PT DENIES ANY OTHER NEEDS AT THIS TIME. CALL LIGHT IN REACH.
--- NOTE | 2022-11-16 22:52 | NUR ---
IN TO ANSWER CALL LIGHT. PT REPORTING PAIN 3/10 IN BACK. PRN MOTRIN ADMINISTERED, SEE MAR. PT SITTING UP IN RECLINER. PILLOW PLACED BEHIND PTs BACK FOR COMFORT. PT DENIES ANY OTHER NEEDS AT THIS TIME. CALL LIGHT IN REACH.
[2022-11-17 05:04] VITALS: BP 138/89
--- NOTE | 2022-11-17 05:16 | NUR ---
IN TO ROUND ON PT. PT SITTING UP IN CHAIR. VITALS AND I&Os COMPLETE. PT REPORTING PAIN 3/10 IN BACK. PT REQUESTING PRN PAIN MEDICATION. PRN TYLENOL ADMINISTERED, SEE MAR. PT TAKES PO MEDICATION WITH NO ISSUES. ASSESSMENT COMPLETE. LUNG SOUNDS CLEAR. BOWEL TONES ACTIVE. ABD TENDER WITH PALPATION. MIDLINE INCISION WITH STERI-STRIPS D/I WITH SMALL AMOUNT OF SHADOWING NOTED. LLQ BANDAID IN PLACE. C/D/I. K PAD PLACED TO PTs BACK. PT REQUESTING WATER, WATER PROVIDED. COFFEE PROVIDED. PT DENIES ANY OTHER NEEDS AT THIS TIME. CALL LIGHT IN REACH.
--- NOTE | 2022-11-17 07:21 | NUR ---
RECIEVED SHIFT REPORT. PT SITTING IN RECLINER, REQUSTING TO TAKE A SHOWER. COFFEE PROVIDED. DENIES FURTHER NEEDS. CALL LIGHT IN REACH.
[2022-11-17 08:19] VITALS: BP 129/74
--- NOTE | 2022-11-17 08:34 | NUR ---
MORNING ASSESSMENT COMPLETE. COMPLAINS OF 2/10 ABD, TOLERABLE. REFUSED LIDOCAINE PATCH. DENIES NAUSEA. MIDLINE INCISION STERI STRIPS CDI. BOWEL TONES ACTIVE IN ALL QUADRANTS, TENDER. DENIES FURTHER NEEDS. CALL LIGHT IN REACH.
--- NOTE | 2022-11-17 08:59 | NUR ---
Patient showered, walked to and from shower safely. Had bowel movement. Patients son is in the room with him.
--- NOTE | 2022-11-17 09:59 | NUR ---
PT TALKING ON PHONE. WILL CHECK BACK
--- NOTE | 2022-11-17 10:12 | NUR ---
PT IN ROOM, FAMILY AT BEDSIDE. ZAKI IN ROOM AT THIS TIME
[2022-11-17] MEDS ORDERED: IBUPROFEN600 MG PO (10:18)
[2022-11-17] MEDS ORDERED: ACETAMINOPHEN500 MG PO (10:18)
[2022-11-17] MEDS ORDERED: FAMOTIDINE20 MG PO (10:19)
[2022-11-17] MEDS ORDERED: LIDOCAINE1 EACH TD (10:19)
[2022-11-17] MEDS ORDERED: PERCOCET 5-3251 EACH PO (10:20)
--- NOTE | 2022-11-19 12:57 | DS ---
[facility] [address] [place], [place] [address] Signed ADMISSION DATE: 11/14/2022 DISCHARGE DATE: 11/17/2022 REASON FOR ADMISSION: Left colon cancer for resection. 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 A CT scan shows no evidence of metastatic disease though the tumor is rather bulky. He does have a normal CEA preoperatively. He is admitted for left colectomy. PERTINENT PHYSICAL EXAMINATION: GENERAL: Large tall white man, in no distress. CHEST: Clear. HEART: Regular without murmur. ABDOMEN: Soft. There is a palpable mass in the left mid abdomen concordant to the tumor. EXTREMITIES: Show no clubbing, cyanosis, or edema. HOSPITAL COURSE: On November 14, 2022, he underwent left colectomy with side-to-end coloproctostomy. Very wide resection of the mesentery was undertaken down to the level of the aorta. Splenic flexure mobilization was undertaken as well. Bilateral tap blocks were performed for post operative pain control. Management for an opiate free recovery was planned. Postoperatively, he was given a clear liquid diet the day of operation which he tolerated well and was advanced to a full liquid diet on post op day one. He promptley had flatus and ultimately stool per rectum. His abdominal pain control was good and unremarkable, though he did have some low back pain from lying on the operative table. It was much improved with upright posture and a requested lidocaine patch. By day of discharge, post op day 3, he is ambulating well, tolerating a regular diet, has regular bowel movements, and incision is healing well. FOLLOWUP PLAN: He is to return to see me in approximately four weeks. He will call on Sunday to schedule an appointment. His pathology report is pending. He will likely have a visit with the medical oncologist, probably in the [place] or [place] area, but we await the final pathology before determining whether chemotherapy would be of benefit; it is notable that he had a very large and bulky tumor. Electronically Signed By: TED HAINES MD 11/19/22 1257 PATIENT NAME: AUSTIN ANDERSON DISCHARGE SUMMARY DATE OF : 46 REPORT #: [id number] PHYSICIAN: TED HAINES MD PCP: OTHER PCP REPORT IS CONFIDENTIAL AND NOT TO BE RELEASED WITHOUT AUTHORIZATION [facility] [address] [place], [place] [address] Signed DISCHARGE DIAGNOSES: 1. Left mid colonic colon cancer status post left colectomy, side-to-end coloproctostomy and splenic flexure mobilization. 2. Chronic alcohol abuse. 3. Hypertension. DISCHARGE MEDICATIONS: 1. Ibuprofen 600 mg p.o. q.6 hours as needed for pain, #60. 2. Tylenol 1000 mg p.o. q.6 hours as needed for pain, #60. 3. Pepcid 20 mg p.o. q.12 hours, #60, refill two. 4. Lidocaine patch 5% transdermal at bedtime, #30, refill 0. 5. Percocet 5/325, 1-2 q.6 hours as needed for pain, #10. 6. He will continue to receive his home medication including amlodipine 10 mg p.o. daily, atorvastatin 20 mg p.o. daily, Proscar 5 mg p.o. at bedtime. 7. Metoprolol 50 mg p.o. bedtime. 8. Vitamin C 100 mg tablet p.o. daily. 9. Vitamin B complex p.o. daily. 10. Thiamine 100 mg tablet p.o. daily. 11. Folic acid 0.4 mg p.o. daily. MD REBECCA Lombardo/JEANNETTEL /[id number] Copies: ~ Electronically Signed By: TED HAINES MD 11/19/22 1257 PATIENT NAME: AUSTIN ANDERSON DISCHARGE SUMMARY DATE OF : 46 REPORT #: [id number] PHYSICIAN: TED HAINES MD PCP: OTHER PCP REPORT IS CONFIDENTIAL AND NOT TO BE RELEASED WITHOUT AUTHORIZATION
--- NOTE | 2022-11-19 12:57 | OR ---
[facility] [address], [place] [address] Signed DATE OF OPERATION: 11/14/2022 SURGEON: Ted Haines MD PREOPERATIVE DIAGNOSIS: Left mid colonic colon carcinoma. POSTOPERATIVE DIAGNOSIS: Left mid colonic colon carcinoma. PROCEDURE: 1. Left colectomy with side-to-end coloproctostomy. 2. Splenic flexure mobilization. ANESTHESIA: General endotracheal, Servando Villeda [employer] and bilateral TAP block. HISTORY: This 72-year-old white man lives in [place], [place], though has property in this area and frequently visits here. He is known to me from the past having undergone colonoscopy demonstrating adenomatous polyps particularly in the cecum. The patient was evaluated by Dr. Rogelio Pruitt located in [place], [place], was found to have a mass in the left abdominal wall initially thought to be a hernia. The palpable mass would be located in what would be the left pararectus area, certainly not an inguinal hernia. On that basis, he underwent a CT scan at [facility] [place] [facility] under my direction, which demonstrated a rather sizable mid descending colonic mass. He underwent colonoscopy on October 17, 2022, where he had several polyps throughout the colon including the cecum, but most dominantly a significant narrowing rather large mass of the distal left colon quite obviously malignancy. Biopsy showed high-grade dysplasia and a CEA level was 3.1 (normal). The patient has a significant past alcohol intake history and underwent outpatient detoxification with gabapentin showing no evidence really of alcohol withdrawal problems. At this point, he is admitted to undergo colectomy for definitive treatment of the neoplasm. Notably, he has no evidence of distant metastatic disease, specifically no hepatic metastases. The patient and his family understand his risks related to operation including, but not Electronically Signed By: TED HAINES MD 11/19/22 1257 PATIENT NAME: AUSTIN ANDERSON OPERATIVE REPORT DATE OF : 46 REPORT #: [id number] PHYSICIAN: TED HAINES MD PCP: OTHER PCP REPORT IS CONFIDENTIAL AND NOT TO BE RELEASED WITHOUT AUTHORIZATION [facility] [address], [place] [address] Signed limited to, bleeding, infection, anastomotic failure, and of course, need for additional treatment should the final pathologic findings warrant. Understanding this, he wished to proceed. FINDINGS: There is no evidence of ascites or carcinomatosis. The liver was normal. The mass was extremely bulky and large at least the size of a softball and was in the mid descending colon. Resection included all of the left colon, all of the sigmoid and mobilization of splenic flexure to allow for side-to-end coloproctostomy. There were no other findings of concern. DESCRIPTION OF PROCEDURE: The patient was brought to the operating room, given a general endotracheal anesthetic. Initial antibiotic was designated as Ancef, Flagyl was additionally given. A Pride catheter was placed. Sequential compression device stockings were used. He had undergone a full preoperative bowel prep including oral antibiotics. The abdomen was clipped and prepared with a chlorhexidine solution and draped sterilely. Palpation of the abdominal wall on the left side demonstrated the mass in question, which was inferior to the umbilicus along the left pararectal space. Midline incision was made extending from the supraumbilical area to the symphysis pubis essentially. Notably, the patient is 260 pounds and 6 feet 4 inches in height with a BMI of 31.6. Abdominal wall subcutaneous fat was not excessively large, but did have a fair amount of intra-abdominal fat including mesentery and omentum. Upon entry to the abdomen, there was no evidence of ascites or carcinomatosis. Palpation of the left colon showed an extremely bulky and large firm mass consistent with a neoplasm diagnosed. The Bookwalter retractor was affixed to the table. Palpation of the liver showed no metastatic disease. The gallbladder appeared normal. The omentum was normal as well. A coiled up appearance of the sigmoid in relation to the left colon was noted due to omental adhesion rather epiploic adhesions to the neoplasm itself. The small bowel was packed to the right side of the abdomen, secured with a Bookwalter retractor. Tattoo marking of the tumor was noted and had penetrated the left pelvic sidewall. The white line of Toldt was mobilized with blunt electrocautery dissection, taken cephalad. Complete mobilization of splenic flexure was undertaken. The mesentery corresponding to the neoplasm of the mid descending colon was palpated and although the mesentery was somewhat thickened distinct obvious enlarged lymph nodes were not appreciated. Considerable care was taken to mobilizing the splenic flexure allowing for complete mobility of the transverse colon and left colon. This included dominantly Electronically Signed By: TED HAINES MD 11/19/22 1257 PATIENT NAME: AUSTIN ANDERSON OPERATIVE REPORT DATE OF : 46 REPORT #: [id number] PHYSICIAN: TED HAINES MD PCP: OTHER PCP REPORT IS CONFIDENTIAL AND NOT TO BE RELEASED WITHOUT AUTHORIZATION [address] [address] Signed electrocautery, but a few areas requiring clips. An area designated as the upper to mid rectum was identified by coalescence of taenia of the colon. An area designated appropriate for transection was marked with a silk suture. A very wide mobilization of the left colonic and sigmoid mesenteries was undertaken so as to provide wide resection and any draining basin lymph nodes. The resection was taken down essentially to the level of the aorta. The mesentery was scored on the medial and lateral aspects. Sequential application of tonsil clamps to the vascular arcades was undertaken. The resection margin proximally was just distal to the splenic flexure proper and distantly to the upper to mid rectum. Heavy clamps were applied to the major vascular pedicles. All vascular pedicles were secured with 0 silk ties, doubly applied. This included of course of the inferior mesenteric vein noted deeply within the abdominal cavity. Complete and anatomic mobility of the mesentery in relation to the retroperitoneum was undertaken with avoidance of the course of the left ureter. The proximal descending colon was transected with 60 mm VIPIN stapling device and the mid rectum secured with a right angle bowel clamp. The resected specimen was passed off the table and photographs were taken. The specimen was opened and the complexity of the tumor mass was quite impressive with obvious note of a very complex ulcerated neoplasm, which was lengthy and likely with impending obstruction. The mobility of the left colon, splenic flexure, and so forth allowed for completely tension-free position of the transverse colon in relation to the rectum. A side-to-end coloproctostomy was undertaken with interrupted 3-0 silk sutures in a two layered technique. Good apposition of mucosa and serosal layers was noted. The mesentery was secured to the retroperitoneum with interrupted 3-0 silk sutures to avoid transmesenteric herniation. At completion of the anastomosis, gloves were changed by all team members. The abdomen was copiously irrigated with saline solution. Through a left lower quadrant incision, a 7 mm flat Marco drain was placed in the left pericolic gutter extending not far from the anastomosis itself. The small bowel was returned to a natural anatomic configuration as was the omentum. Plans were then made for closure. The midline fascia was reapproximated with running bidirectional #1 PDS suture. The skin was closed running subcuticular 3-0 Vicryl. Steri-Strips were applied as was an Acticoat dressing. Sponge, needle, and instrument counts reported as correct x3. The operation was rather prolonged, lasting twice as long as usual at 4 hours, no doubt related to the extent of tumor, wide resection of the mesentery and other features of dissection in the face of significant abdominal Electronically Signed By: TED HAINES MD 11/19/22 1257 PATIENT NAME: AUSTIN ANDERSON OPERATIVE REPORT DATE OF : 46 REPORT #: [id number] PHYSICIAN: TED HAINES MD PCP: OTHER PCP REPORT IS CONFIDENTIAL AND NOT TO BE RELEASED WITHOUT AUTHORIZATION [address] [address] Signed obesity. Blood loss was less than 200 mL in aggregate. MD REBECCA Lombardo/AVA /[id number] cc: Rogelio Pruitt MD [place], [place] Copies: ~ Electronically Signed By: TED HAINES MD 11/19/22 1257 PATIENT NAME: AUSTIN ANDERSON OPERATIVE REPORT DATE OF : 46 REPORT #: [id number] PHYSICIAN: TED HAINES MD PCP: OTHER PCP REPORT IS CONFIDENTIAL AND NOT TO BE RELEASED WITHOUT AUTHORIZATION
--- NOTE | 2022-11-20 17:01 | PATH ---
[facility] [address] [place], [place] [address] Signed SPECIMEN(S): A LEFT COLON SPECIMEN SOURCE: A. LEFT COLON CLINICAL HISTORY: Malignant tumor of colon FINAL PATHOLOGIC DIAGNOSIS: Left colon, colectomy: - Invasive adenocarcinoma with the following features: - Tumor site: Left colon. - Tumor size: 12.3 x 6 x 7.1 cm. - Macroscopic tumor perforation: Absent. - Histologic tumor type: Adenocarcinoma. - Histologic grade: Grade 2 (moderately differentiated). - Tumor extension: Tumor infiltrates the muscularis propria and focally extends to within the pericolonic adipose tissue. - Surgical margins: All proximal, distal, and circumferential resection margins are negative for tumor. - Distance of invasive carcinoma from closest margin: 11.5 cm (vascular root). - Lymphovascular invasion: Absent. - Perineural invasion: Absent. - Tumor deposits: Present, two identified, each <1 mm in size. - Microsatellite instability testing by IHC: - MLH1: Intact nuclear expression. - MSH2: Intact nuclear expression. - MSH6: Intact nuclear expression. - PMS2: Intact nuclear expression. INTERPRETATION: Normal pattern. COMMENT (MSI): Tumor cells show no loss of nuclear expression of MMR proteins. This correlates with a low probability of microsatellite instability. However, if there is a high clinical suspicion for Schreiber syndrome (hereditary non-polyposis colorectal carcinoma syndrome) in this patient, additional testing should be considered. Please contact [facility] if such testing is indicated. - BRAF testing: BRAF testing may not be indicated in the absence of metastatic disease and has not been ordered. PATIENT NAME: AUSTIN KAISER PATHOLOGY DATE OF : 46 REPORT #: [id number] PHYSICIAN: JASE SÁNCHEZ PCP: OTHER PCP REPORT IS CONFIDENTIAL AND NOT TO BE RELEASED WITHOUT AUTHORIZATION [facility] [address] [place], [place] [address] Signed - Lymph nodes: - Total number of lymph nodes examined: 40. - Number of lymph nodes which contain tumor: 0. - Pathologic stage classification: pT3, pN1c, pMX. COMMENT: As part of [facility]' Quality Improvement Program, this case was reviewed by another member of our pathology staff. JVR:LEN:anahi:C1NR MICROSCOPIC EXAMINATION: Histologic sections of all submitted blocks are examined by light microscopy. These findings, together with the gross examination, support the pathologic diagnosis. A panel of four antibodies is selected which will detect 95% of microsatellite unstable carcinomas. Testing is performed at the request of Basim Wasserman MD. Block: A6 Recut HE slide is prepared from the block. The presence of neoplastic glands and non-neoplastic internal control glands or stroma is confirmed. Internal control cells for MLH1, MSH2, PMS2 and MSH6 are positive. Neoplastic gland cells show the following: - MLH1: Positive. - MSH2: Positive. - MSH6: Positive. - PMS2: Positive. Technical testing is performed at [facility], [place], [place]. MAHI:anahi GROSS DESCRIPTION: The specimen, labeled and designated "Joseph Kaiser, " and designated on the requisition "left colon with tumor," is received in formalin and consists of one unoriented segment of previously opened large bowel that is 47 cm in length and has an internal circumference that ranges from 4.5 cm at one resection margin up to 7.5 cm at the opposite resection margin. The serosal surface is a pink with an area of black dye discoloration that is associated with a 12.5 x 10.5 x 8.0 cm area of induration. The serosal surface in this area is pink-red and smooth. The serosa is inked blue and the radial margin in this area was inked green. The mesentery in this area has adherent pink-red multilobulated portions of adipose tissue. The surface is inked blue. The indurated area displays a 12.3 x 6.0 PATIENT NAME: AUSTIN KAISER PATHOLOGY DATE OF : 46 REPORT #: [id number] PHYSICIAN: JASE PATHOLOGY PCP: OTHER PCP REPORT IS CONFIDENTIAL AND NOT TO BE RELEASED WITHOUT AUTHORIZATION [facility] [address] [place], [place] [address] Signed x 7.1 cm finney-brown fungating mass. This mass is 13.8 cm from the closest resection margin, 23.5 cm from the opposite resection margin, 0.5 cm from the radial resection margin, 11.5 cm from the vascular root resection margin, and 0.5 cm from the serosal surface. The mass appears to grossly involve a diverticulum. Sectioning reveals extension through the muscularis propria and into the adjacent pericolonic adipose tissue. The bowel wall has an average thickness of 0.7 cm. Sectioning through the bowel wall reveals multiple diverticula. Upon dissection of the attached pericolonic adipose tissue multiple lymph nodes are grossly identified. Three of these lymph nodes are grossly positive for tumor. Edge Bonder sections are submitted in 28 cassettes. Cassette Summary: (A1) closest resection margin, shave (A2) opposite resection margin, shave (A3) vascular root resection margin, shave (A4) mass to closest radial resection margin, perpendicular (A5) uninvolved large bowel and diverticulum (A6) mass to uninvolved bowel wall (A7) mass with extension into the pericolonic adipose tissue (A8) mass to serosal surface, perpendicular (A9) mass within diverticulum to serosal surface, perpendicular (A10) one possible lymph node, sectioned (A11) two possible lymph nodes, each bisected, one arbitrarily inked (A12) three possible lymph nodes grossly positive for tumor, telephone services sales representative sections (A13) one possible lymph node, sectioned (A14) one possible lymph node, sectioned (A15) one possible lymph node, sectioned (A16) six possible lymph nodes, submitted whole (A17) one possible lymph node, trisected (A18) six possible lymph nodes, submitted whole (A19) one possible lymph node, sectioned (A20) two possible lymph nodes, one bisected, the opposite inked and submitted whole (A21) two possible lymph nodes one inked and bisected the other trisected (A22) one possible lymph node, sectioned (A23) two possible lymph nodes, each bisected, one arbitrarily inked (A24) two possible lymph nodes, each bisected, one arbitrarily inked PATIENT NAME: AUSTIN KAISER PATHOLOGY DATE OF : 46 REPORT #: [id number] PHYSICIAN: JASE PATHOLOGY PCP: OTHER PCP REPORT IS CONFIDENTIAL AND NOT TO BE RELEASED WITHOUT AUTHORIZATION [address], [place] [address] Signed (A25) two possible lymph nodes, each bisected, one arbitrarily inked (A26) three possible lymph nodes, submitted whole (A27) one possible lymph node, sectioned (A28) one possible lymph node, bisected FB (under the direct supervision of a pathologist) The Gross Description was prepared using a voice recognition system. The report was reviewed for accuracy; however, sound-alike word errors, addition and/or deletions may occur. If there is any question about this report, please contact Client Services. ADDITIONAL NOTES: Immunohistochemical and/or in situ hybridization studies were performed on this case with the appropriate positive controls that react as expected. This test was developed and its performance characteristics determined by [facility]. It has not been cleared or approved by the U.S. Food and Drug Administration. The FDA has determined that such clearance or approval is not necessary. This test is used for clinical purposes. It should not be regarded as investigational or for research. [facility] is certified under the Clinical Laboratory Improvement Amendments of 1988 (CLIA) as qualified to perform high complexity clinical laboratory testing. PERFORMING LABORATORY: The technical component was performed by [facility], [address] [place] [id number] (CLIA# [id number]). Professional interpretation was performed by [facility], [address] [place] [address], [place] [address] (CLIA#: [id number]). Diagnostician: Basim Wasserman MD Pathologist Electronically Signed 11/20/2022 Copies: ~ PATIENT NAME: AUSTIN KAISER PATHOLOGY DATE OF : 46 REPORT #: [id number] PHYSICIAN: JASE SÁNCHEZ PCP: OTHER PCP REPORT IS CONFIDENTIAL AND NOT TO BE RELEASED WITHOUT AUTHORIZATION
== END 2022-11-17 10:55 | disposition home or self-care (01) | DRG 331 ==
LOC: DSVR 11-14 07:24 → MS 11-14 07:24
PROVIDERS: ADMIT Surgery; ATTEND Surgery
PROC: 0D1L0ZP Bypass Transverse Colon to Rectum, Open Approach (ICD-10-PCS; 2022-11-14)
PROC: HZ2ZZZZ Detoxification Services for Substance Abuse Treatment (ICD-10-PCS; 2022-11-14)
PROC: 0DTG0ZZ Resection of Left Large Intestine, Open Approach (ICD-10-PCS; principal; 2022-11-14 09:30)
DX: C18.6 Malignant neoplasm of descending colon (principal); F10.10 Alcohol abuse, uncomplicated; I10 Essential (primary) hypertension; Z20.822 Contact with and (suspected) exposure to COVID-19; M54.9 Dorsalgia, unspecified; G89.29 Other chronic pain; Z98.890 Other specified postprocedural states; Z79.899 Other long term (current) drug therapy
CPT/HCPCS: 00840; 36415; 76942; 80053; 85025; 86850; 86900; 86901; 87502; 88309; 88341; 88342; 93005; 93010; A9270; J0131; J0330; J0690; J1100; J1170; J1644; J1885; J2001; J2250; J2405; J2704; J3490; J7121; U0003

== ENCOUNTER 2023-12-18 11:56 | Day surgery (SDC) | payer MEDICARE, OTHER ==
[~2023-12-18] VITALS: Ht 188 cm; Wt 111.0 kg
[~2023-12-18 11:56] MED LIST changes: +ACETAMINOPHEN500 MG PO; +FAMOTIDINE20 MG PO; +FOLIC ACID0.4 MG PO; +IBLOOD GLUCOSE TEST STRIP 1 EA TEST VI PRN; +IBUPROFEN600 MG PO; +LACTATED RINGER'S 1,000 ML IV SCH; +LIDOCAINE HCL 1% 5 ML SDV INJ ONE; +LIDOCAINE1 EACH TD; +MIDAZOLAM HCL 5 MG/5 ML VIAL IV PRN; +PERCOCET 5-3251 EACH PO; +VITAMIN B-1100 M1 PO; +fentaNYL citrate 100 MCG/2 ML VIAL IV PRN
[2023-12-18 12:15] VITALS: BP 153/89
[2023-12-18] MEDS ORDERED: CEFAZOLIN SODIUM 2 GM/20 ML SYR ONE (12:23)
[2023-12-18] MEDS ORDERED: CEFAZOLIN SODIUM 2 GM/20 ML SYR IV SCH (12:32)
--- NOTE | 2023-12-18 13:16 | NUR ---
ROUNDED ON PT. PT IS RESTING IN BED WATCHING TV W/WARM BLANKET ON. PT UPDATED THAT HE IS NEXT IN LINE, NO SPECIFIC TIME FRAME PROVIDED. PT OFFERED NEW WARM BLANKET OR ESCORT TO BATHROOM IF NEEDED, PT STATES NO NEEDS OR QUESTIONS AT THIS TIME. CALL LIGHT IN PLACE.
[2023-12-18] MEDS ORDERED: MIDAZOLAM HCL 5 MG/5 ML VIAL ONE (13:27)
[2023-12-18] MEDS ORDERED: fentaNYL citrate 100 MCG/2 ML VIAL ONE (13:27)
--- NOTE | 2023-12-18 14:43 | NUR ---
12/18/23 1443 Danii Wang 1435- PT ARRIVES TO PACU AWAKE AND TALKING. PT REPORTS NO PAIN OR NAUSEA. RESP EVEN AND UNLABORED. OXYGEN SAT MID TO HIGH 90'S ON 2L VIA CO2 NC. 1441- PT PASSING FLATUS.
[2023-12-18 15:02] VITALS: BP 127/83
--- NOTE | 2023-12-19 14:40 | OR ---
[facility] [address] [place], [place] [address] Signed DATE OF OPERATION: 12/18/2023 SURGEON: Ted Haines MD PREOPERATIVE DIAGNOSIS: History of sigmoid resection for large (12 cm) adenocarcinoma on November 14, ; 40 lymph nodes negative for metastatic disease. POSTOPERATIVE DIAGNOSES: 1. Diverticulosis remaining colon. 2. Residual cecal polyp. PROCEDURE: Total colonoscopy to cecum with cold snare polypectomy and cold morcellation polypectomy. ANESTHESIA: Intravenous sedation; fentanyl 100 mcg, Versed 5 mg and preop antibiotic Ancef 2 g. INDICATION: This 73-year-old white man is a patient of Dr. Taniya Martino in [place], [place]. He originally presented with a mass in the left lower quadrant was suggestive of possible hernia. 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 On November 14, , underwent sigmoid resection of the left colon and sigmoid with primary anastomosis. He was found to have 40 lymph nodes in the specimen, none of which showed metastatic disease. Nevertheless, he did undergo adjuvant chemotherapy postoperatively. He was recently noted to have had Giardia, which was ultimately treated effectively and is symptom free having no bleeding, diarrhea or constipation. He understands the risk of colonoscopy for surveillance including the risk of bleeding, infection, perforation and wished to proceed. FINDINGS: The prep was good. Complete colonoscopy was undertaken of the cecum. There was residual tattoo of the mucosa and residual polyp in the area, which was excised with combination of cold snare and cold morcellation technique. It is believed complete extirpation of the remaining polyp has been accomplished. He was noted to have diverticula of the remaining colon. The anastomosis was widely patent. The rectum was normal. PROCEDURE IN DETAIL: The patient was brought to the endoscopy suite and placed in lateral decubitus position. Electronically Signed By: TED HAINES MD 12/19/23 1440 PATIENT NAME: AUSTIN ANDERSON OPERATIVE REPORT DATE OF : 46 REPORT #: [id number] PHYSICIAN: TED HAINES MD PCP: MILTON MARTINO MD (TANIYA) REPORT IS CONFIDENTIAL AND NOT TO BE RELEASED WITHOUT AUTHORIZATION [facility] [address] [place], [place] [address] Signed He was given preoperative antibiotic Ancef 2 g. He was given intravenous sedation to the point of slurred speech and nystagmus. Digital rectal examination was normal. An Olympus video colonoscope was passed in the rectum and manipulated throughout the colon passing the anastomosis without problem. Scope was ultimately passed to the cecum. The ileocecal valve and appendiceal orifice was identified as normal. Within the area of prior Endomark tattoo dye was a linear polypoid abnormality consistent with recurrent or persistent polyp. This was excised with combination of techniques of cold morcellation and cold snare technique. The specimen was passed for pathology. The scope was then withdrawn and examination throughout showed no sign of abnormality other than diverticula dominantly of the transverse and kt left colon. The anastomosis was widely patent. The rectum was normal. Scope was removed. The patient was taken to the recovery room in good condition. CONCLUDING DIAGNOSES: 1. Residual cecal polyp extirpated with combination of techniques. 2. Diverticulosis. PLAN: Recommend repeat colonoscopy in one year on the basis of his previous cancer as well as the polyp of the cecum. MD REBECCA Lombardo/JEANNETTEL /[id number] cc: Dr. Taniya Martino [place], [place] Copies: ~ Electronically Signed By: TED HAINES MD 12/19/23 1440 PATIENT NAME: AUSTIN ANDERSON OPERATIVE REPORT DATE OF : 46 REPORT #: [id number] PHYSICIAN: TED HAINES MD PCP: MILTON MARTINO MD (TANIYA) REPORT IS CONFIDENTIAL AND NOT TO BE RELEASED WITHOUT AUTHORIZATION
--- NOTE | 2023-12-20 15:43 | PATH ---
[facility] [address] [facility] [place], [place] [address] Signed SPECIMEN(S): A CECUM COLON POLYP SPECIMEN SOURCE: A. CECUM COLON POLYP CLINICAL HISTORY: S/P Colon CA with colectomy in 2022. FINAL PATHOLOGIC DIAGNOSIS: Cecum colon polyp: - Tubular adenoma (multiple fragments). - See comment. COMMENT: The tubular adenoma contains several foci which approach but do not unequivocally reach high-grade dysplasia. Appropriate clinical follow-up is recommended. As part of [facility]' Quality Improvement Program, this case was reviewed by another member of our pathology staff. JVR:mike MICROSCOPIC EXAMINATION: Histologic sections of all submitted blocks are examined by light microscopy. These findings, together with the gross examination, support the pathologic diagnosis. GROSS DESCRIPTION: The specimen, labeled and designated "Kaiser, cecum polyp," is received in formalin and consists of seven brown soft tissue fragments, ranging from 0.1 to 0.2 cm. Entirely submitted in (A1). JS (under the direct supervision of a pathologist) The Gross Description was prepared using a voice recognition system. The report was reviewed for accuracy; however, sound-alike word errors, addition and/or deletions may occur. If there is any question about this report, please contact Client Services. PERFORMING LABORATORY: Technical component was performed by [facility], [address] [place] [id number] (CLIA# [id number]). Professional interpretation was performed by [facility], [address] [place] [address], [place] [address] (CLIA#: [id number]). PATIENT NAME: AUSTIN KAISER PATHOLOGY DATE OF : 46 REPORT #: [id number] PHYSICIAN: JASE PATHOLOGY PCP: MILTON MARTINO MD (TANIYA) REPORT IS CONFIDENTIAL AND NOT TO BE RELEASED WITHOUT AUTHORIZATION [address] [place], [place] [address] Signed Diagnostician: Basim Wasserman MD Pathologist Electronically Signed 12/20/2023 Copies: ~ PATIENT NAME: AUSTIN KAISER PATHOLOGY DATE OF : 46 REPORT #: [id number] PHYSICIAN: JASE PATHOLOGY PCP: MILTON MARTINO MD (TANIYA) REPORT IS CONFIDENTIAL AND NOT TO BE RELEASED WITHOUT AUTHORIZATION
== END 2023-12-18 15:10 | disposition home or self-care (01) ==
LOC: OPS 11:56 → DS 12:05 → OPS 13:00
PROVIDERS: ATTEND Surgery
PROC: 0DBH8ZX Excision of Cecum, Via Natural or Artificial Opening Endoscopic, Diagnostic (ICD-10-PCS; principal; 2023-12-18 13:00)
DX: D12.0 Benign neoplasm of cecum (principal); K57.90 Diverticulosis of intestine, part unspecified, without perforation or abscess without bleeding; I10 Essential (primary) hypertension; Z85.038 Personal history of other malignant neoplasm of large intestine
CPT/HCPCS: 88305; 99153; G0500; J0690; J2250; J3010; J7121